=== PATIENT | male | born 2000 | race Caucasian/White ===

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

== ENCOUNTER 2020-01-23 21:33 | Emergency (ER) | payer MEDICAID ==
[~2020-01-23] VITALS: Ht 175.3 cm; Wt 132.6 kg
[~2020-01-23 21:33] MED LIST changes: -LAMOTRIGINE 100 MG TABLET PO SCH
[2020-01-23 21:44] VITALS: BP 170/90
--- NOTE | 2020-01-23 22:13 | NUR ---
SEEN AND DC'D BY PA IN TRIAGE.
== END 2020-01-23 22:17 | disposition home or self-care (01) ==
LOC: ED 21:55
DX: K08.89 Other specified disorders of teeth and supporting structures (principal); J45.909 Unspecified asthma, uncomplicated; I10 Essential (primary) hypertension
CPT/HCPCS: 99283

== ENCOUNTER 2020-02-16 07:21 | Emergency (ER) | payer MEDICAID ==
[~2020-02-16] VITALS: Ht 175.3 cm; Wt 133.0 kg
[2020-02-16] MEDS ORDERED: ACETAMINOPHEN 500 MG TABLET PO ONE (08:00)
[2020-02-16 08:16] LABS: BASOPHILS # (AUTO) 0.03 x10^3/uL (0-0.3); BASOPHILS % (AUTO) 0 % (0-1); EOSINOPHILS # (AUTO) 0.14 x10^3/uL (0-0.8); EOSINOPHILS % (AUTO) 2 % (1-7); LYMPHOCYTES # (AUTO) 2.04 x10^3/uL (1-6.1); LYMPHOCYTES % (AUTO) 23 % (22-44); MD NO; MEAN CORPUSCULAR HEMOGLOBIN 28.9 pg (27.5-34.5); MEAN CORPUSCULAR HGB CONC 32.1 g/dL (33.2-36.2); MEAN CORPUSCULAR VOLUME 90.2 fL (81-97); MEAN PLATELET VOLUME 8.1 fL (7.4-10.4); MONOCYTES # (AUTO) 0.55 x10^3/uL (0-1.4); MONOCYTES % (AUTO) 6 % (2-9); NEUTROPHILS % (AUTO) 70 % (42-75); PLATELET COUNT 368 x10^3/uL (130-400); RED BLOOD COUNT 5.26 x10^6/uL (4.38-5.82); RED CELL DISTRIBUTION WIDTH 13.6 % (9.4-14.8)
[2020-02-16 08:26] LABS: ALBUMIN 4.1 g/dL (3.4-5.0); ANION GAP 7 mmol/L (5-15); CALCIUM 9.4 mg/dL (8.5-10.1); CHLORIDE 107 mmol/L (98-107)
[2020-02-16 08:27] LABS: CREATININE 0.91 mg/dL (0.7-1.3); SALICYLATE LEVEL < 1.7 mg/dL (2.8-20.0)
--- NOTE | 2020-02-16 08:30 | NUR ---
LEFT WRIST HURTS FROM FALLING WHILE WALKING HERE. STATED IS SUICIDAL, THOUGHTS STARTED YESTERDAY. DENIED PREVIOUS SA. PT REPORTS THAT HIS GRANDMOTHER JUST SO HE HAS BEEN FEELIG SAD. REPORTS THAT HE HAS A PLAN TO HANG HIMSELF. ROOM IS SAFE AND SECURE. ED APPAREL MACHINERY INSTRUCTOR NOTIFIED ABOUT THE NEED FOR AN NIKA SITTER.
[2020-02-16] MEDS ORDERED: ACETAMINOPHEN 500 MG TABLET ONE (09:17)
--- NOTE | 2020-02-16 09:47 | NUR ---
PT MOVED TO ROOM 1, ROOM SAFE AND SECURE, NIKA SITTER OUTSIDE ROOM. URINE SENT TO LAB.
[2020-02-16 09:52] LABS: MICROSCOPIC NOT IND
--- NOTE | 2020-02-16 10:54 | NUR ---
DIET TRAY ORDERED. PT CALM IN BED, RR EVEN UNLABORED.
--- NOTE | 2020-02-16 11:41 | NUR ---
TASK RN: PROVIDED SNACK TO PT. SITTER OUTSIDE DOOR FOR SAFETY MONITORING.
--- NOTE | 2020-02-16 12:02 | NUR ---
PSYCH TURNING SANDER OPERATOR AT BEDSIDE FOR EVAL.
[2020-02-16 12:21] LABS: CANNABINOID SCREEN, URINE Positive (Negative); COCAINE SCREEN, URINE Negative (Negative); METHADONE SCREEN, URINE Negative (Negative); OPIATE SCREEN, URINE Negative (Negative)
[2020-02-16 12:23] LABS: AMPHETAMINE SCREEN, URINE Negative (Negative); BARBITURATE SCREEN, URINE Negative (Negative); BENZODIAZEPINE SCREEN, URINE Negative (Negative)
[2020-02-16 12:44] VITALS: BP 124/74
== END 2020-02-16 12:50 | disposition home or self-care (01) ==
LOC: ED 09:10
DX: G89.11 Acute pain due to trauma (principal); M25.532 Pain in left wrist; R45.851 Suicidal ideations; E11.9 Type 2 diabetes mellitus without complications; J45.909 Unspecified asthma, uncomplicated; I10 Essential (primary) hypertension; W01.0XXA Fall on same level from slipping, tripping and stumbling without subsequent striking against object, initial encounter; Y93.89 Activity, other specified; Y92.89 Other specified places as the place of occurrence of the external cause; Y99.8 Other external cause status
CPT/HCPCS: 29125; 36415; 80048; 80307; 81003; 82040; 85025; 99284

== ENCOUNTER 2020-02-27 07:44 | Emergency (ER) | payer MEDICAID ==
[~2020-02-27] VITALS: Ht 175.3 cm; Wt 130.0 kg
[2020-02-27] MEDS ORDERED: SODIUM CHLORIDE 0.9% 1,000ML IVBOLUS ONE (08:30)
[2020-02-27 08:52] LABS: BASOPHILS # (AUTO) 0.04 x10^3/uL (0-0.3); BASOPHILS % (AUTO) 0 % (0-1); EOSINOPHILS # (AUTO) 0.22 x10^3/uL (0-0.8); EOSINOPHILS % (AUTO) 2 % (1-7); LYMPHOCYTES # (AUTO) 2.81 x10^3/uL (1-6.1); LYMPHOCYTES % (AUTO) 24 % (22-44); MD NO; MEAN CORPUSCULAR HEMOGLOBIN 29.3 pg (27.5-34.5); MEAN CORPUSCULAR HGB CONC 32.5 g/dL (33.2-36.2); MEAN CORPUSCULAR VOLUME 90.1 fL (81-97); MEAN PLATELET VOLUME 8.4 fL (7.4-10.4); MONOCYTES # (AUTO) 0.85 x10^3/uL (0-1.4); MONOCYTES % (AUTO) 7 % (2-9); NEUTROPHILS % (AUTO) 67 % (42-75); PLATELET COUNT 380 x10^3/uL (130-400); RED BLOOD COUNT 5.35 x10^6/uL (4.38-5.82); RED CELL DISTRIBUTION WIDTH 13.6 % (9.4-14.8)
[2020-02-27 09:01] LABS: ALANINE AMINOTRANSFERASE 37 U/L (12-78); ALBUMIN 4.3 g/dL (3.4-5.0); ANION GAP 6 mmol/L (5-15); CALCIUM 9.9 mg/dL (8.5-10.1); CHLORIDE 107 mmol/L (98-107); CREATININE 0.86 mg/dL (0.7-1.3)
[2020-02-27 09:16] LABS: ALKALINE PHOSPHATASE 146 U/L (45-117); BILIRUBIN,TOTAL 0.3 mg/dL (0.2-1.0); TOTAL PROTEIN 7.8 g/dL (6.4-8.2)
[2020-02-27 09:50] VITALS: BP 159/71
== END 2020-02-27 09:55 | disposition home or self-care (01) ==
LOC: ED 09:25
DX: B34.9 Viral infection, unspecified (principal); Z20.828 Contact with and (suspected) exposure to other viral communicable diseases; R00.0 Tachycardia, unspecified; I10 Essential (primary) hypertension; J45.909 Unspecified asthma, uncomplicated
CPT/HCPCS: 36415; 71045; 80053; 83605; 85025; 85379; 87635; 93005; 96360; 99285; J7030

== ENCOUNTER 2020-03-02 06:27 | Emergency (ER) | payer MEDICAID ==
[~2020-03-02] VITALS: Ht 175.3 cm; Wt 131.0 kg
[2020-03-02 06:58] VITALS: BP 166/99
--- NOTE | 2020-03-02 06:58 | NUR ---
PROVIDER EVAL AND TO BE DISCHARGED
== END 2020-03-02 07:27 | disposition home or self-care (01) ==
LOC: ED 06:49
DX: R06.02 Shortness of breath (principal); R53.83 Other fatigue; Z00.00 Encounter for general adult medical examination without abnormal findings; Z77.22 Contact with and (suspected) exposure to environmental tobacco smoke (acute) (chronic)
CPT/HCPCS: 99283

== ENCOUNTER 2020-03-05 03:26 | Emergency (ER) | payer MEDICAID ==
[~2020-03-05] VITALS: Ht 175.3 cm; Wt 110.0 kg
[2020-03-05 03:50] LABS: BASOPHILS # (AUTO) 0.04 x10^3/uL (0-0.3); BASOPHILS % (AUTO) 0 % (0-1); EOSINOPHILS # (AUTO) 0.39 x10^3/uL (0-0.8); EOSINOPHILS % (AUTO) 3 % (1-7); LYMPHOCYTES % (AUTO) 26 % (22-44); MD NO; MEAN CORPUSCULAR HEMOGLOBIN 29.8 pg (27.5-34.5); MEAN CORPUSCULAR HGB CONC 33.1 g/dL (33.2-36.2); MEAN PLATELET VOLUME 8.4 fL (7.4-10.4); MONOCYTES # (AUTO) 0.63 x10^3/uL (0-1.4); MONOCYTES % (AUTO) 5 % (2-9); NEUTROPHILS # (AUTO) 7.65 x10^3/uL (1.8-8.0); NEUTROPHILS % (AUTO) 65 % (42-75); PLATELET COUNT 408 x10^3/uL (130-400); RED CELL DISTRIBUTION WIDTH 13.7 % (9.4-14.8)
[2020-03-05 04:02] LABS: ALANINE AMINOTRANSFERASE 42 U/L (12-78); ALBUMIN 4.1 g/dL (3.4-5.0); ANION GAP 9 mmol/L (5-15); CALCIUM 9.4 mg/dL (8.5-10.1); CHLORIDE 106 mmol/L (98-107); CREATININE 1.02 mg/dL (0.7-1.3)
[2020-03-05 04:03] LABS: SALICYLATE LEVEL < 1.7 mg/dL (2.8-20.0)
[2020-03-05 04:05] LABS: ALKALINE PHOSPHATASE 142 U/L (45-117); BILIRUBIN,TOTAL 0.3 mg/dL (0.2-1.0); TOTAL PROTEIN 7.7 g/dL (6.4-8.2)
--- NOTE | 2020-03-05 04:29 | NUR ---
MT: Telepsych consult requested.
--- NOTE | 2020-03-05 05:10 | NUR ---
PATIENT STANDING IN HALLWAY, UPDATED PATIENT ON PLAN OF CARE. NO NOTED ADDITIONAL NEEDS AT THIS TIME. EXPLAINED PROCESS OF ADMISSION. SITTER WITHIN VIEW OF PATIENT. WILL CONTINUE TO MONITOR.
--- NOTE | 2020-03-05 06:02 | NUR ---
PATIENT RESTING IN BED, NO NOTED ACUTE DISTRESS. PATIENT HAS REQUEST TO GO TO [facility], PATIENT STATED THAT [facility] IS "TOO STRICT".
[2020-03-05 06:44] LABS: AMPHETAMINE SCREEN, URINE Negative (Negative); BARBITURATE SCREEN, URINE Negative (Negative); BENZODIAZEPINE SCREEN, URINE Negative (Negative); CANNABINOID SCREEN, URINE Negative (Negative); COCAINE SCREEN, URINE Negative (Negative); METHADONE SCREEN, URINE Negative (Negative); OPIATE SCREEN, URINE Negative (Negative)
--- NOTE | 2020-03-05 06:44 | NUR ---
MANISH RN: PACKET FAXED TO [facility], [place], [place], [place], [facility]
--- NOTE | 2020-03-05 06:51 | NUR ---
REPORT GIVEN TO JAMISON GIORDANO
--- NOTE | 2020-03-05 06:52 | NUR ---
REPORT RECEIVED FROM MEENU SWIFT. PT SLEEPING ON GURNEY W/ GARAGE DOORS DOWN AND SITTER OUTSIDE ROOM FOR SAFETY. RESP EVEN AND UNLABORED, BLANQUITA.
--- NOTE | 2020-03-05 08:00 | NUR ---
PT SLEEPING ON GURNEY W/ SITTER OUTSIDE ROOM AND GARAGE DOORS DOWN FOR SAFETY. RESP EVEN AND UNLABORED, BLANQUITA.
--- NOTE | 2020-03-05 09:00 | NUR ---
PT SLEEPING ON GURNEY W/ SITTER OUTSIDE ROOM AND GARAGE DOORS DOWN FOR SAFETY. RESP EVEN AND UNLABORED, BLANQUITA.
--- NOTE | 2020-03-05 10:00 | NUR ---
PT NOW AWAKE, UPDATED ON POC FOR TODAY. PROVIDED BREAKFAST TRAY. PT RESTING ON GURNEY W/ GARAGE DOORS DOWN AND SITTER OUTSIDE ROOM FOR SAFETY. RESP EVEN AND UNLABORED, BLANQUITA.
[2020-03-05] MEDS ORDERED: NEOSPORIN OINT. PKT 1 PACKET ONE (10:41)
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
--- NOTE | 2020-03-05 12:35 | NUR ---
PSY EVAL IN TO SEE PT (JASMINA) QUESTION RE PT KYLEIGH RELATED TO THE HOLD JASMINA TO RESOLVE
[2020-03-05] MEDS ORDERED: ZIPRASIDONE 20MG CAPSULE PO SCH (13:00)
[2020-03-05] MEDS ORDERED: GUANFACINE 1MG TAB ER PO SCH (13:00)
--- NOTE | 2020-03-05 13:02 | NUR ---
THROUGHPUT: REFAXING INFORMATION TO [facility] AND [facility]
--- NOTE | 2020-03-05 13:04 | NUR ---
[facility]
[2020-03-05] MEDS ORDERED: ZIPRASIDONE 20MG CAPSULE ONE (13:11)
--- NOTE | 2020-03-05 13:15 | NUR ---
ROJAS VILLAFUERTE FROM PHARMACY.
[2020-03-05 13:23] VITALS: BP 147/101
--- NOTE | 2020-03-05 13:25 | NUR ---
PT STANDING IN DOOR WAY W/ SITTER OUTSIDE ROOM AND GARAGE DOORS DOWN FOR SAFETY. COMPLIANT W/ VS. VSS, NADN.
--- NOTE | 2020-03-05 14:25 | NUR ---
PT RESTING ON GURNEY W/ SITTER OUTSIDE ROOM AND GARAGE DOORS DOWN FOR SAFETY. RESP EVEN AND UNLABORED, BLANQUITA.
--- NOTE | 2020-03-05 14:30 | NUR ---
PT UPDATED ON POC FOR TRANSFER TO [facility]. AGREEABLE AT THIS TIME.
--- NOTE | 2020-03-05 15:12 | NUR ---
THROUGHPUT: GEOVANNI FROM [facility] ACCEPTED PT. DR. DE ACCEPTING
--- NOTE | 2020-03-05 16:47 | NUR ---
REPORT GIVEN TO MARTIN. BELONGINGS RETURNED TO PT. PT ESCORTED OUT BY EMS.
[2020-03-05] MEDS ORDERED: LAMOTRIGINE 100 MG TABLET PO SCH (21:00)
[2020-03-05] MEDS ORDERED: AMANTADINE 100 MG CAPSULE PO SCH (21:00)
[2020-03-05] MEDS ORDERED: TRAZODONE 100MG TABLET PO SCH (21:00)
== END 2020-03-05 16:49 ==
LOC: ED 05:56
DX: F32.1 Major depressive disorder, single episode, moderate (principal); R45.851 Suicidal ideations; F41.9 Anxiety disorder, unspecified; J45.909 Unspecified asthma, uncomplicated; E11.9 Type 2 diabetes mellitus without complications; Z72.9 Problem related to lifestyle, unspecified
CPT/HCPCS: 36415; 80053; 80307; 85025; 99283

== ENCOUNTER 2020-03-28 09:14 | Emergency (ER) | payer MEDICAID ==
[~2020-03-28] VITALS: Ht 175.3 cm; Wt 134.0 kg
[2020-03-28 09:36] VITALS: BP 164/102
--- NOTE | 2020-03-28 10:07 | NUR ---
TAR POT MAN: PT AMBULATORY WITH STEADY GAIT TO ROOM AT THIS TIME. BLANQUITA
--- NOTE | 2020-03-28 10:18 | NUR ---
first contact with pt. pt c/o l wrist pain d/t fall and diaarrhea x 3 days. denies abd pain/n/v. pt stated"i might have food poisoning because govid test was negative." pt's aox4. resps even and unlabored. pt refused gown d/t wrist pain. bp/spo2 monitors in place. call light within reach.
[2020-03-28] MEDS ORDERED: IBUPROFEN 600 MG TABLET PO ONE (10:30)
[2020-03-28] MEDS ORDERED: IBUPROFEN 600 MG TABLET ONE (10:42)
--- NOTE | 2020-03-28 11:01 | NUR ---
pt medicated per emar. pt tolerated well.
--- NOTE | 2020-03-28 11:52 | NUR ---
Patient given discharge instructions and they have confirmed that they understand the instructions. Patient ambulatory with steady gait.
== END 2020-03-28 11:53 | disposition home or self-care (01) ==
LOC: ED 10:35
DX: G89.11 Acute pain due to trauma (principal); M25.532 Pain in left wrist; M79.642 Pain in left hand; R11.2 Nausea with vomiting, unspecified; R19.7 Diarrhea, unspecified; F17.200 Nicotine dependence, unspecified, uncomplicated; W01.0XXA Fall on same level from slipping, tripping and stumbling without subsequent striking against object, initial encounter; Y93.89 Activity, other specified; Y92.009 Unspecified place in unspecified non-institutional (private) residence as the place of occurrence of the external cause; Y99.8 Other external cause status
CPT/HCPCS: 29125; 99283

== ENCOUNTER 2020-04-01 19:47 | Emergency (ER) | payer MEDICAID ==
[~2020-04-01] VITALS: Ht 175.3 cm; Wt 128.0 kg
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
[2020-04-01] MEDS ORDERED: DIPH,PERTUSS(ACELL),TET VAC/PF 0.5 ML IM-VACC ONE ×2 (20:30→21:30)
[2020-04-01] MEDS ORDERED: NEOSPORIN OINT. PKT 1 PACKET ONE (21:07)
[2020-04-01 22:56] VITALS: BP 138/81
== END 2020-04-01 22:58 | disposition home or self-care (01) ==
LOC: ED 20:00
DX: S01.551A Open bite of lip, initial encounter (principal); S01.451A Open bite of right cheek and temporomandibular area, initial encounter; S61.451A Open bite of right hand, initial encounter; E11.9 Type 2 diabetes mellitus without complications; J45.909 Unspecified asthma, uncomplicated; W54.0XXA Bitten by dog, initial encounter; Y93.K1 Activity, walking an animal; Y92.89 Other specified places as the place of occurrence of the external cause; Y99.8 Other external cause status
CPT/HCPCS: 90471; 90715; 99283

== ENCOUNTER 2020-04-16 16:46 | Emergency (ER) | payer MEDICAID ==
[~2020-04-16] VITALS: Ht 177.8 cm; Wt 134.0 kg
--- NOTE | 2020-04-16 16:58 | NUR ---
PER PT HE FELL ON HIS RIGHT SIDE NOT LEFT SIDE. PT STATES HIS HEAD PAIN IS ABOUT 2/10 AND HIS RIGHT KNEE ALSO HURTS. PT REPORTS THAT HE WAS WALKING AND FELT DIZZY THEN FELL TO THE GROUND. PT STATES HE CALLED EMS BECAUSE HE WAS STILL DIZZY AND WAS AFRAID TO STAND UP. EKG DONE. PT ON TELEHEALTH NURSE EDUCATOR AND CONTINUOUS PULSE OX.
[2020-04-16] MEDS ORDERED: ACETAMINOPHEN 325 MG TABLET ONE (17:18)
[2020-04-16] MEDS ORDERED: ACETAMINOPHEN 325 MG TABLET PO ONE (17:30)
[2020-04-16 17:43] LABS: ALANINE AMINOTRANSFERASE 29 U/L (12-78); ALBUMIN 3.7 g/dL (3.4-5.0); ANION GAP 4 mmol/L (5-15); CALCIUM 9.1 mg/dL (8.5-10.1); CHLORIDE 109 mmol/L (98-107); CREATININE 1.02 mg/dL (0.7-1.3)
[2020-04-16 17:46] LABS: ALKALINE PHOSPHATASE 143 U/L (45-117); BILIRUBIN,TOTAL 0.3 mg/dL (0.2-1.0); TOTAL PROTEIN 7.2 g/dL (6.4-8.2)
--- NOTE | 2020-04-16 17:46 | NUR ---
BREAK RN: PT GIVEN PO FLUIDS PER DR LAW.
[2020-04-16 17:54] LABS: BASOPHILS # (AUTO) 0.07 x10^3/uL (0-0.3); BASOPHILS % (AUTO) 1 % (0-1); EOSINOPHILS # (AUTO) 0.32 x10^3/uL (0-0.8); EOSINOPHILS % (AUTO) 3 % (1-7); LYMPHOCYTES # (AUTO) 2.97 x10^3/uL (1-6.1); LYMPHOCYTES % (AUTO) 24 % (22-44); MD NO; MEAN CORPUSCULAR HEMOGLOBIN 29.8 pg (27.5-34.5); MEAN CORPUSCULAR HGB CONC 33.5 g/dL (33.2-36.2); MEAN PLATELET VOLUME 8.6 fL (7.4-10.4); MONOCYTES # (AUTO) 0.74 x10^3/uL (0-1.4); MONOCYTES % (AUTO) 6 % (2-9); NEUTROPHILS # (AUTO) 8.12 x10^3/uL (1.8-8.0); NEUTROPHILS % (AUTO) 67 % (42-75); PLATELET COUNT 398 x10^3/uL (130-400); RED BLOOD COUNT 5.02 x10^6/uL (4.38-5.82); RED CELL DISTRIBUTION WIDTH 12.8 % (9.4-14.8)
[2020-04-16 18:52] VITALS: BP 132/56
== END 2020-04-16 18:54 | disposition home or self-care (01) ==
LOC: ED 18:10
DX: R42 Dizziness and giddiness (principal); M25.562 Pain in left knee; R00.0 Tachycardia, unspecified; I10 Essential (primary) hypertension; E11.9 Type 2 diabetes mellitus without complications; J45.909 Unspecified asthma, uncomplicated
CPT/HCPCS: 36415; 80053; 85025; 93005; 99284

== ENCOUNTER 2020-05-01 10:46 | Emergency (ER) | payer MEDICAID ==
[~2020-05-01] VITALS: Ht 175.3 cm; Wt 112.0 kg
--- NOTE | 2020-05-01 11:12 | NUR ---
pt amb to room 2 with steady gait.
[2020-05-01 11:24] LABS: BASOPHILS % (AUTO) 1 % (0-1); EOSINOPHILS % (AUTO) 3 % (1-7); LYMPHOCYTES % (AUTO) 27 % (22-44); MEAN CORPUSCULAR HEMOGLOBIN 29.1 pg (27.5-34.5); MEAN CORPUSCULAR HGB CONC 33.2 g/dL (33.2-36.2); MEAN PLATELET VOLUME 8.4 fL (7.4-10.4); MONOCYTES % (AUTO) 8 % (2-9); NEUTROPHILS % (AUTO) 61 % (42-75); PLATELET COUNT 318 x10^3/uL (130-400); RED BLOOD COUNT 5.46 x10^6/uL (4.38-5.82); RED CELL DISTRIBUTION WIDTH 13.3 % (9.4-14.8)
[2020-05-01 11:26] LABS: MD NO
--- NOTE | 2020-05-01 11:30 | NUR ---
UMAIR ESTEVES TO BEDSIDE. ASSESSMENT IN PROGRESS
[2020-05-01 11:36] LABS: ALANINE AMINOTRANSFERASE 23 U/L (12-78); ANION GAP 6 mmol/L (5-15); CALCIUM 9.7 mg/dL (8.5-10.1); CHLORIDE 107 mmol/L (98-107); CREATININE 1.06 mg/dL (0.7-1.3)
[2020-05-01 11:38] LABS: ALKALINE PHOSPHATASE 146 U/L (45-117); BILIRUBIN,TOTAL 0.3 mg/dL (0.2-1.0); SALICYLATE LEVEL < 1.7 mg/dL (2.8-20.0)
[2020-05-01 12:25] VITALS: BP 134/78
== END 2020-05-01 12:27 | disposition home or self-care (01) ==
LOC: ED 11:33
DX: G89.29 Other chronic pain (principal); M25.532 Pain in left wrist; L02.91 Cutaneous abscess, unspecified; F20.9 Schizophrenia, unspecified; E11.9 Type 2 diabetes mellitus without complications; W01.0XXA Fall on same level from slipping, tripping and stumbling without subsequent striking against object, initial encounter; Y93.89 Activity, other specified; Y92.098 Other place in other non-institutional residence as the place of occurrence of the external cause; Y99.8 Other external cause status
CPT/HCPCS: 29125; 36415; 80053; 80307; 85025; 99284

== ENCOUNTER 2020-07-20 05:31 | Emergency (ER) | payer MEDICAID ==
[~2020-07-20] VITALS: Ht 176.5 cm; Wt 136.4 kg
[~2020-07-20 05:31] MED LIST changes: +GUAN4TAB3 PO; -GUAN4TAB4 PO
[2020-07-20 05:33] VITALS: BP 145/84
[2020-07-20 06:24] LABS: MICROSCOPIC INDICATED
== END 2020-07-20 06:45 | disposition home or self-care (01) ==
LOC: ED 06:42
DX: N30.00 Acute cystitis without hematuria (principal); R30.0 Dysuria
CPT/HCPCS: 81001; 87086; 99283

== ENCOUNTER 2020-07-30 05:15 | Emergency (ER) | payer MEDICAID ==
[~2020-07-30] VITALS: Ht 175.3 cm; Wt 134.0 kg
[2020-07-30 05:20] VITALS: BP 160/102
== END 2020-07-30 05:58 | disposition home or self-care (01) ==
LOC: ED 05:29
DX: Z00.00 Encounter for general adult medical examination without abnormal findings (principal); E11.9 Type 2 diabetes mellitus without complications; J45.909 Unspecified asthma, uncomplicated
CPT/HCPCS: 99281

== ENCOUNTER 2020-12-01 13:14 | Emergency (ER) | payer MEDICAID ==
[~2020-12-01] VITALS: Ht 175.3 cm; Wt 125.1 kg
[2020-12-01 13:22] VITALS: BP 162/109
== END 2020-12-01 14:12 | disposition home or self-care (01) ==
LOC: ED 14:04
DX: S63.502A Unspecified sprain of left wrist, initial encounter (principal); I10 Essential (primary) hypertension; E11.9 Type 2 diabetes mellitus without complications; J45.909 Unspecified asthma, uncomplicated; X50.0XXA Overexertion from strenuous movement or load, initial encounter; Y93.89 Activity, other specified; Y92.410 Unspecified street and highway as the place of occurrence of the external cause; Y99.8 Other external cause status
CPT/HCPCS: 29125; 99283